=== PATIENT | male | born 1940 | race Caucasian/White ===

== ENCOUNTER 2018-02-25 11:09 | Observation (INO) | payer MEDICARE, OTHER ==
[~2018-02-25] VITALS: Ht 188 cm; Wt 101.9 kg
[~2018-02-25 11:09] MED LIST: Aspirin EC81 MG PO; LEVSOD125 PO
[2018-02-25 11:47] LABS: BASOPHILS ABSOLUTE AUTO 0.05 K/mm3 (0.00-0.23); BASOPHILS PERCENT AUTO 1 % (0-2); EOSINOPHILS PERCENT AUTO 3 % (0-6); Hematocrit 44.8 % (37.0-53.0); Hemoglobin 15.2 g/dL (13.5-17.5); IMMATURE GRAN ABSOLUTE AUTO 0.04 K/mm3 (0.00-0.10); IMMATURE GRAN PERCENT AUTO 1 % (0-1); LYMPHOCYTES ABSOLUTE AUTO 1.58 K/mm3 (0.84-5.20); LYMPHOCYTES PERCENT AUTO 27 % (21-46); MONOCYTES ABSOLUTE AUTO 0.74 K/mm3 (0.16-1.47); MONOCYTES PERCENT AUTO 13 % (4-13); Mean Corpuscular HGB 34.5 pg (26.0-34.0); Mean Corpuscular HGB Conc 33.9 g/dL (31.5-36.5); Mean Corpuscular Volume 102 fL (80-100); Mean Platelet Volume 10.9 fL (9.1-12.4); NEUTROPHILS ABSOLUTE AUTO 3.25 K/mm3 (1.96-9.15); NEUTROPHILS PERCENT AUTO 55 % (41-73); Platelet Count 134 K/mm3 (150-400); RDW Standard Deviation 48.8 fL (35.1-46.3); Red Blood Cell Count 4.41 M/mm3 (4.30-5.90); White Blood Cell Count 5.86 K/mm3 (4.00-11.30)
[2018-02-25 11:59] LABS: Prothrombin Time Results 10.3 Sec (9.7-11.5)
[2018-02-25 12:03] LABS: Alanine Aminotransfer (ALT/SGP 36 U/L (12-78); Albumin/Globulin Ratio 1.1 (0.8-1.8); Alk Phos 98 U/L (50-136); Anion Gap 7 mmol/L (6-16); Aspartate Aminotrans (AST/SGOT 28 U/L (12-37); Bilirubin, Total 0.7 mg/dL (0.1-1.0); Blood Urea Nitrogen 19 mg/dL (8-24); Bun/Creatinine Ratio 20.3 (12.0-20.0); CO2, Blood 26 mmol/L (21-32); Chloride, Blood 105 mmol/L (98-108); Creatinine, Blood 0.94 mg/dL (0.60-1.20); Globulin, Blood 3.6 g/dL (2.2-4.0); Glomerular Filtration Rate >60 (60-); Glucose, Blood 94 mg/dL (70-99); Potassium, Blood 4.5 mmol/L (3.5-5.5); Sodium, Blood 138 mmol/L (136-145); Total Protein, Blood 7.6 g/dL (6.4-8.2)
[2018-02-25 12:34] LABS: Source, Urine Clean Catch
[2018-02-25 12:41] LABS: Bilirubin, Urine Neg (Neg); Blood, Urine Neg (Neg); Glucose Qualitative, Urine Neg (Neg); Ketones, Urine Neg (Neg); Leukocyte Esterase, Urine Neg (Neg); Nitrite, Urine Neg (Neg); Protein, Urine Neg (Neg); Specific Gravity, Urine 1.015 (1.003-1.022); Urobilinogen, Urine NORM (Normal)
[2018-02-25 12:58] LABS: Appearance, Urine Clear (Clear); Color, Urine Yellow (P-Yellow)
[2018-02-25] MEDS ORDERED: Hair, Skin & N1 EACH PO (15:37)
[2018-02-25] MEDS ORDERED: VITAMIN D5000 UNI1 PO (15:40)
[2018-02-25] MEDS ORDERED: VIT B PO (15:41)
--- NOTE | 2018-02-25 16:37 | NUR ---
NEW ER ADMIT PT IS A/O X4, PLEASANT AFFECT. STATE REASON FOR HOSP L SIDED WEAKNESS, DIFFICULTY SPEAKING & THINKING TODAY WHILE @ [facility]. STATE SYMPTOMS HAVE RESOLVED @ THIS TIME. DR DEJESUS SAW HIM IN ER, DX TIA. ORDER ECHO & CAROTID US. CT HEAD NEGATIVE. PT HAS DISTANT HX OF AFIB, HAS BEEN TAKING LOW DOSE ASA @ HOME. DR DEJESUS START XARALTO & PRAVASTATIN. PT/ EDUCATED R/T UPCOMING PROCEDURES, TX'S & MEDICATIONS. QUESTIONS ANSWERED TO THEIR SATISFACTION @ THIS TIME. TELE SINUS KAYDEN 52, BP 172/98.
--- NOTE | 2018-02-26 04:36 | NUR ---
SHIFT SUMMARY PT HAS RESTED THIS SHIFT WITH NO ACUTE CHANGES. THERE WERE NO NEURO DEFICITS AND PT REPORTS COMPLETE RESOLUTION OF SYMPTOMS THAT BROUGHT HIM INTO THE HOSPITAL. PT HAS BEEN UP AND INDEPENDENT IN THE ROOM. DENIES PAIN OR NEEDS T/O THE NIGHT. VITALS STABLE. PLAN IS FOR ECHO TODAY AND POSSIBLE DISCHARGE HOME. WILL CONTINUE TO MONITOR AND REPORT TO ONCOMING RN.
[2018-02-26 05:35] LABS: Anion Gap 8 mmol/L (6-16); Blood Urea Nitrogen 19 mg/dL (8-24); Bun/Creatinine Ratio 19.4 (12.0-20.0); CO2, Blood 25 mmol/L (21-32); Calcium, Blood 8.9 mg/dL (8.5-10.1); Chloride, Blood 104 mmol/L (98-108); Creatinine, Blood 0.98 mg/dL (0.60-1.20); Glomerular Filtration Rate >60 (60-); Glucose, Blood 103 mg/dL (70-99); Potassium, Blood 4.2 mmol/L (3.5-5.5); Sodium, Blood 137 mmol/L (136-145)
--- NOTE | 2018-02-26 10:25 | NUR ---
Echocardiogram completed.
[2018-02-26] MEDS ORDERED: PRAV20 PO (14:19)
--- NOTE | 2018-02-26 14:46 | NUR ---
DISCHARGE NOTE PT LEFT WITH VIA CAR TO GO HOME. INDEPENDENT, VERY EAGER TO LEAVE. PIV REMOVED, PAPERWORK REVIEWED, MEDS FAXED TO [facility] IN [place]. WHILE TELE WAS ON, RYHTHM WAS NSR AT 58 PER TRENCHING MACHINE OPERATOR. ECHO DONE PRIOR TO LEAVING.
[2018-03-23] MEDS ORDERED: PROSTATE HEALT1 EACH PO (12:18)
[2018-03-23] MEDS ORDERED: VITAMIN B125000 MCG PO (12:19)
== END 2018-02-26 14:31 | disposition home or self-care (01) ==
LOC: ER 11:09 → MEDS 11:10 → ER 14:49 → MEDS 14:55 → ENPENDDIS 02-26 14:00 → MEDS 02-26 14:31
PROVIDERS: Emergency Medicine; ADMIT Hospitalist
DX: G45.9 Transient cerebral ischemic attack, unspecified (principal); E78.5 Hyperlipidemia, unspecified; E03.9 Hypothyroidism, unspecified; Z86.39 Personal history of other endocrine, nutritional and metabolic disease; Z79.82 Long term (current) use of aspirin; Z79.899 Other long term (current) drug therapy; Z87.891 Personal history of nicotine dependence
CPT/HCPCS: 36415; 70450; 71045; 80048; 80053; 81003; 84443; 85025; 85610; 85730; 93005; 93010; 93306; 93880; 99285-25; G0378

== ENCOUNTER 2018-03-26 05:56 | Day surgery (SDC) | payer MEDICARE, OTHER ==
[~2018-03-26] VITALS: Ht 188 cm; Wt 106.0 kg
[~2018-03-26 05:56] MED LIST changes: +Hair, Skin & N1 EACH PO; +PRAV20 PO; +PROSTATE HEALT1 EACH PO; +VIT B PO; +VITAMIN B125000 MCG PO; +VITAMIN D5000 UNI1 PO
--- NOTE | 2018-03-26 07:37 | NUR ---
DR NEVILLE IN ROOM TO CONSENT PT.
--- NOTE | 2018-03-26 07:55 | NUR ---
PT TOLERATED LEIGHA WELL; LEIGHA PROBE OUT.
--- NOTE | 2018-03-26 09:22 | NUR ---
DISCHARGE INSTRUCTIONS REVIEWED ALL QUESTIONS ANSWERED. 20 G IV DISCONTINUED FROM RIGHT FOREARM WITH INTACT CANNULA. PT DRANK SIPS OF WATER WITH NO ASPIRATION. PT ESCORTED OUT VIA WHEELCHAIR ESCORT.
== END 2018-03-26 22:38 | disposition home or self-care (01) ==
LOC: MHTC 05:56
PROC: B246ZZ4 Ultrasonography of Right and Left Heart, Transesophageal (ICD-10-PCS; principal; 2018-03-26)
DX: I67.9 Cerebrovascular disease, unspecified (principal); R53.83 Other fatigue; R06.02 Shortness of breath; I48.0 Paroxysmal atrial fibrillation; R42 Dizziness and giddiness; E83.119 Hemochromatosis, unspecified; I44.0 Atrioventricular block, first degree; E78.5 Hyperlipidemia, unspecified; E03.9 Hypothyroidism, unspecified; I10 Essential (primary) hypertension
CPT/HCPCS: 93312; 93325; J7120

== ENCOUNTER 2018-04-24 05:53 | Day surgery (SDC) | payer MEDICARE, OTHER ==
[~2018-04-24] VITALS: Ht 190.5 cm; Wt 104.0 kg
--- NOTE | 2018-04-24 08:08 | NUR ---
PT AWAKE, ALERT SITTING IN RECLINER. NO C/O PAIN OR DISCOMFORT. NO BLEEDING OR SWELLING NOTED TO RIGHT WRIST. AT BEDSIDE. VSS.
--- NOTE | 2018-04-24 08:52 | NUR ---
PT HR INCREASED TO MID 90'S WHILE SLEEPING. WOKE TO ASSESS SYMPTOMS AND HR BACK TO 70S.
--- NOTE | 2018-04-24 10:50 | NUR ---
DR. LUEVANO HERE TO DISCUSS RESULTS WITH PATIENT. 2 CC AIR REMOVED FROM TR BAND. ADDITIONAL 5 CC AIR REMOVED.
--- NOTE | 2018-04-24 11:09 | NUR ---
ADDITIONAL POLY REMOVED FROM TR BAND. NO BLEEDING AT SITE.
--- NOTE | 2018-04-24 11:58 | NUR ---
PT VERBALIZED UNDERSTANDING OF D/C INSTRUCTIONS. TR BAND REMOVED FROM RIGHT WRIST WITH RED CLOTH DOT DRESSING INTACT. ARM BOARD REMAINS ON. PT GETS DRESSED WITH ASSISTANCE FROM HIS . IV REMOVED FROM LAC WITH CATH INTACT, PRESSURE DRESSING APPLIED. VSS. PT DENIES NEED FOR W/C OUT TO PRIVATE VEHICLE. STEADY GAIT, NADN AT TIME OF DISPO.
== END 2018-04-24 12:00 | disposition home or self-care (01) ==
LOC: MHTC 05:53
DX: I49.9 Cardiac arrhythmia, unspecified (principal); R94.30 Abnormal result of cardiovascular function study, unspecified
CPT/HCPCS: 85347; 93458; 93571; 99152; C1769; C1887; C1894; J1644; J2250; J3010; J7030; Q9967

== ENCOUNTER → 2020-03-23 | Outpatient (CLI) | payer MEDICARE | LOC: LAB SHORT 12:51 → PLD 12:51 | DX: D48.5 Neoplasm of uncertain behavior of skin (principal) | CPT/HCPCS: 88305 ==

== ENCOUNTER → 2020-12-28 | Outpatient (CLI) | payer OTHER | END | disposition home or self-care (01) | LOC: LAB 07:35 → LAB SHORT 07:35 | DX: C44.41 Basal cell carcinoma of skin of scalp and neck (principal) | CPT/HCPCS: 88305 ==

== ENCOUNTER → 2022-11-28 | Outpatient (CLI) | payer OTHER | LOC: PLD 11:49 → LAB SHORT 11:49 | DX: C44.311 Basal cell carcinoma of skin of nose (principal) | CPT/HCPCS: 88305 ==

== ENCOUNTER 2023-09-15 09:35 | Emergency (ER) | payer OTHER ==
[~2023-09-15] VITALS: Ht 188 cm; Wt 100.7 kg
[2023-09-15] MEDS ORDERED: HYDROmorphone HCl/Pf 1MG SYR ONE (09:44)
[2023-09-15] MEDS ORDERED: Ondansetron HCl 2 MG / ML 2ML Vial IV ONE ×2 (09:50→12:30)
[2023-09-15] MEDS ORDERED: HYDROmorphone HCl/Pf 1MG SYR IV ONE ×2 (09:50→10:05)
[2023-09-15 10:00] LABS: BASOPHILS ABSOLUTE AUTO 0.03 K/mm3 (0.00-0.23); BASOPHILS PERCENT AUTO 1 % (0-2); EOSINOPHILS ABSOLUTE AUTO 0.08 K/mm3 (0.00-0.68); EOSINOPHILS PERCENT AUTO 1 % (0-6); Hematocrit 46.5 % (37.0-53.0); Hemoglobin 15.9 g/dL (13.5-17.5); IMMATURE GRAN ABSOLUTE AUTO 0.03 K/mm3 (0.00-0.10); IMMATURE GRAN PERCENT AUTO 1 % (0-1); LYMPHOCYTES ABSOLUTE AUTO 1.45 K/mm3 (0.84-5.20); LYMPHOCYTES PERCENT AUTO 24 % (21-46); MONOCYTES ABSOLUTE AUTO 0.67 K/mm3 (0.16-1.47); MONOCYTES PERCENT AUTO 11 % (4-13); Mean Corpuscular HGB 35.4 pg (26.0-34.0); Mean Corpuscular HGB Conc 34.2 g/dL (31.5-36.5); Mean Corpuscular Volume 104 fL (80-100); NEUTROPHILS ABSOLUTE AUTO 3.79 K/mm3 (1.96-9.15); NEUTROPHILS PERCENT AUTO 63 % (41-73); Platelet Count 169 K/mm3 (150-400); RDW Coefficient Variation 12.9 % (11.7-14.2); RDW Standard Deviation 49.2 fL (35.1-46.3); Red Blood Cell Count 4.49 M/mm3 (4.30-5.90); White Blood Cell Count 6.05 K/mm3 (4.00-11.30)
[2023-09-15 10:17] LABS: Bun/Creatinine Ratio 24.4 (12.0-20.0); Calcium, Blood 9.1 mg/dL (8.5-10.1); Creatinine, Blood 0.94 mg/dL (0.60-1.20); Potassium, Blood 4.5 mmol/L (3.5-5.5)
[2023-09-15] MEDS ORDERED: Morphine Sulfate 4 MG/1 ML Injection IV ONE (12:30)
[2023-09-15 12:41] VITALS: BP 180/119
== END 2023-09-15 12:57 | disposition short-term general hospital (02) ==
LOC: ER 09:35
PROVIDERS: Emergency Medicine
DX: S82.252A Displaced comminuted fracture of shaft of left tibia, initial encounter for closed fracture (principal); S82.832A Other fracture of upper and lower end of left fibula, initial encounter for closed fracture; W19.XXXA Unspecified fall, initial encounter; S01.01XA Laceration without foreign body of scalp, initial encounter; S01.81XA Laceration without foreign body of other part of head, initial encounter; Z87.891 Personal history of nicotine dependence; E03.9 Hypothyroidism, unspecified; E78.5 Hyperlipidemia, unspecified; Z79.82 Long term (current) use of aspirin; Z79.899 Other long term (current) drug therapy
CPT/HCPCS: 12002; 70450; 73552; 73562-LT; 73590; 80048; 85025; 96374-59; 96375-59; 96376-59; 99285-25; J1170; J2270; J2405

== ENCOUNTER 2024-10-08 09:25 | Emergency (ER) | payer OTHER ==
[~2024-10-08] VITALS: Ht 190.5 cm; Wt 98.4 kg
[2024-10-08 11:30] VITALS: BP 141/94
[2024-10-08] MEDS ORDERED: CEPH500 PO (11:55)
== END 2024-10-08 12:03 | disposition home or self-care (01) ==
LOC: ER 09:25
DX: S50.11XA Contusion of right forearm, initial encounter (principal); W19.XXXA Unspecified fall, initial encounter; L03.113 Cellulitis of right upper limb; E03.9 Hypothyroidism, unspecified; E78.5 Hyperlipidemia, unspecified; Z79.01 Long term (current) use of anticoagulants; Z79.890 Hormone replacement therapy; Z79.82 Long term (current) use of aspirin; Z79.899 Other long term (current) drug therapy; Z87.891 Personal history of nicotine dependence
CPT/HCPCS: 76882; 99283-25

== ENCOUNTER 2025-01-17 10:14 | Observation (INO) | payer OTHER ==
[2025-01-17] VITALS (22 sets, daily range): BP systolic 85–163; BP diastolic 55–114
[~2025-01-17] VITALS: Ht 190.5 cm; Wt 105.5 kg
[~2025-01-17 10:14] MED LIST changes: +CEPH500 PO
[2025-01-17] MEDS ORDERED: Ondansetron HCl 2 MG / ML 2ML Vial IV ONE (10:30)
[2025-01-17] MEDS ORDERED: Morphine Sulfate 4 MG/1 ML Injection IV PRN (10:30)
[2025-01-17] MEDS ORDERED: NS 1,000 ML IV ONE ×2 (10:43→12:43)
[2025-01-17] MEDS ORDERED: FentaNYL Citrate 50 MCG/ML 2 ML Injection ONE (10:45)
[2025-01-17] MEDS ORDERED: Midazolam HCl 1MG / ML 2ML Vial ONE (10:45)
[2025-01-17 10:47] LABS: Hematocrit 50.5 % (37.0-53.0); Hemoglobin 17.2 g/dL (13.5-17.5); Mean Corpuscular HGB Conc 34.1 g/dL (31.5-36.5); Mean Corpuscular Volume 103 fL (80-100); NRBC ABSOLUTE 0.00 K/mm3 (0.00-0.02); NRBC Auto 0.0 /100 WBC (0.0-0.2); Platelet Count 191 K/mm3 (150-400); RDW Coefficient Variation 13.2 % (11.7-14.2); RDW Standard Deviation 50.6 fL (35.1-46.3)
[2025-01-17 10:54] LABS: Prothrombin Time Results 12.2 Sec (9.7-11.5)
[2025-01-17 10:57] LABS: Alanine Aminotransfer (ALT/SGP 26 U/L (12-78); Albumin, Blood 4.1 g/dL (3.4-5.0); Albumin/Globulin Ratio 1.0 (0.8-1.8); Anion Gap 8 mmol/L (3-11); Aspartate Aminotrans (AST/SGOT 32 U/L (12-37); Bilirubin, Total 1.0 mg/dL (0.1-1.0); Blood Urea Nitrogen 18 mg/dL (8-24); CHOL/HDL RATIO 3.3; CO2, Blood 26 mmol/L (21-32); Calcium, Blood 9.5 mg/dL (8.5-10.1); Chloride, Blood 103 mmol/L (98-108); Cholesterol 238 mg/dL (50-200); Creatinine, Blood 1.01 mg/dL (0.60-1.20); Globulin, Blood 4.0 g/dL (2.2-4.0); Glucose, Blood 121 mg/dL (70-99); HDL Cholesterol 72 mg/dL (>39); LDL/HDL RATIO 1.6; Low Density Lipoprotein Chol 119 mg/dL (0-110); Magnesium, Blood 2.2 mg/dL (1.6-2.4); Potassium, Blood 4.0 mmol/L (3.5-5.5); Sodium, Blood 133 mmol/L (136-145); Total Protein, Blood 8.1 g/dL (6.4-8.2); Triglycerides 236 mg/dL (30-160); Very Low Density Lipoprot Chol 47 mg/dL (6-32)
[2025-01-17 10:57] LABS: Calcium, Ionized (POC) 1.16 mmol/L (1.10-1.46); Chloride (POC) 102 mmol/L (98-108); Creatinine (POC) 1.2 mg/dL (0.8-1.3); Glucose (ISTAT POC) 119 mg/dL (70-99); Hematocrit (POC) 49.0 % (41.0-53.0); Hemoglobin (POC) 16.7 g/dL (13.5-17.5); Potassium (POC) 4.2 mmol/L (3.5-5.5); Sodium (POC) 137 mmol/L (135-148); Total CO2 (POC) 28 mmol/L (21-32)
[2025-01-17] MEDS ORDERED: NS 250 ML IV ONE (12:43)
[2025-01-17] MEDS ORDERED: Heparin Sodium 1000 Units/ML 10ML MDV ONE (12:43)
[2025-01-17] MEDS ORDERED: Verapamil HCL 2.5 MG/ML 2ML Injection ONE (12:43)
[2025-01-17] MEDS ORDERED: Nitroglycerin 2 MG/20 ML BTL ONE (12:44)
[2025-01-17] MEDS ORDERED: Ondansetron HCl 2 MG / ML 2ML Vial IV PRN (13:05)
[2025-01-17] MEDS ORDERED: FLU VACC TS2025(65UP)/MF59C/PF 45 MCG/0.5 ML SYRINGE IM SCH (13:10)
[2025-01-17] MEDS ORDERED: MAGNESIUM OXID500 MG PO (13:17)
[2025-01-17] MEDS ORDERED: XARELTO20 MG PO (13:17)
[2025-01-17] MEDS ORDERED: ZINC15 PO (13:18)
[2025-01-17] MEDS ORDERED: FISH OIL 1,0001 EA10 PO (13:18)
--- NOTE | 2025-01-17 13:49 | NUR ---
Admission/[place] of Care: Patient arrived from to [facility] at approx 1215hr, accompanied by x2 cath RN's. Patient alert and oriented x4. Denies chest pain or discomfort. VSS, SpO2 98% RA. Peripheral IV's x2 patent and intact. TR band in place to rt radial. Small hematoma noted proximal of TR band upon arrival to unit. Direct pressure held over hematoma, effectively displaced. Distal cap refill and Spo2 pleth WNL. Hematoma then returned after direct pressure stopped. Dr. C[place]AND to bedside, assisted with placement of additional TR band over insertions site 10ml air placed. Instructed to decrease air in both bands simultaneously 2hr post placement. Site and distal extremity now without any complications. Call light in reach, makes needs known. Will continue to monitor.
[2025-01-17] MEDS ORDERED: Heparin Sodium,Porcine 5,000 UNIT/0.5 ML SDV SC ONE (17:13)
--- NOTE | 2025-01-17 18:32 | NUR ---
Shift Summary: No significant changes throughout remainder of shift. Continues to deny chest pain/discomfort. VS remain stable, HR has improved from 40's to low 60's, BP stable. Voided using urinal in bed without difficulty. Rt radial access site remains stable. X2 TR bands slowly deflated and removed throughout remainder of shift. Small soft hematoma noted, but stable. Distal extremity wnl. Call light in reach, makes needs known. Will continue to monitor until report to NOC shift RN.
[2025-01-18] VITALS (9 sets, daily range): BP systolic 107–143; BP diastolic 81–114
[2025-01-18 02:35] LABS: BASOPHILS ABSOLUTE AUTO 0.06 K/mm3 (0.00-0.23); BASOPHILS PERCENT AUTO 1 % (0-2); EOSINOPHILS ABSOLUTE AUTO 0.15 K/mm3 (0.00-0.68); EOSINOPHILS PERCENT AUTO 2 % (0-6); Hematocrit 42.3 % (37.0-53.0); Hemoglobin 14.0 g/dL (13.5-17.5); IMMATURE GRAN ABSOLUTE AUTO 0.02 K/mm3 (0.00-0.10); IMMATURE GRAN PERCENT AUTO 0 % (0-1); LYMPHOCYTES ABSOLUTE AUTO 1.41 K/mm3 (0.84-5.20); LYMPHOCYTES PERCENT AUTO 19 % (21-46); MONOCYTES ABSOLUTE AUTO 1.00 K/mm3 (0.16-1.47); MONOCYTES PERCENT AUTO 14 % (4-13); Mean Corpuscular HGB Conc 33.1 g/dL (31.5-36.5); Mean Corpuscular Volume 104 fL (80-100); NEUTROPHILS ABSOLUTE AUTO 4.72 K/mm3 (1.96-9.15); NEUTROPHILS PERCENT AUTO 64 % (41-73); NRBC ABSOLUTE 0.00 K/mm3 (0.00-0.02); NRBC Auto 0.0 /100 WBC (0.0-0.2); Platelet Count 144 K/mm3 (150-400); RDW Coefficient Variation 13.0 % (11.7-14.2); RDW Standard Deviation 50.1 fL (35.1-46.3)
[2025-01-18 02:40] LABS: Alanine Aminotransfer (ALT/SGP 25.0 U/L (12-78); Albumin, Blood 3.1 g/dL (3.4-5.0); Albumin/Globulin Ratio 1.0 (0.8-1.8); Anion Gap 7.0 mmol/L (3-11); Aspartate Aminotrans (AST/SGOT 67.0 U/L (12-37); Bilirubin, Total 0.7 mg/dL (0.1-1.0); Blood Urea Nitrogen 18.0 mg/dL (8-24); CO2, Blood 26.0 mmol/L (21-32); Calcium, Blood 8.8 mg/dL (8.5-10.1); Chloride, Blood 106.0 mmol/L (98-108); Creatinine, Blood 0.93 mg/dL (0.60-1.20); Globulin, Blood 3.2 g/dL (2.2-4.0); Glucose, Blood 97.0 mg/dL (70-99); Potassium, Blood 4.4 mmol/L (3.5-5.5); Sodium, Blood 135.0 mmol/L (136-145); Total Protein, Blood 6.3 g/dL (6.4-8.2)
--- NOTE | 2025-01-18 04:50 | NUR ---
SHIFT SUMMARY uneventful shift. pt remained in Afib, controlled rates 60-80s. VSS. R radial site soft, with mild bruising. no chest pain
[2025-01-18] MEDS ORDERED: Cholecalciferol 1000 Unit Tablet (=25MCG) PO SCH (09:00)
[2025-01-18] MEDS ORDERED: XARELTO20 MG PO (11:21)
[2025-01-18] MEDS ORDERED: CLOP75 PO (11:22)
[2025-01-18] MEDS ORDERED: ATOR10 PO (11:22)
[2025-01-18] MEDS ORDERED: ASPI81CH PO (11:22)
--- NOTE | 2025-01-18 11:45 | NUR ---
Discharge orders received. patient education packets for heart attack, atorvastatin and clopidogrel printed and reviewed with patient. Doctor instructions reviewed with patient and his , including bean picker location for new medications. Patient and given opportunity to ask questions. Patient left unit under own power with .
== END 2025-01-18 12:12 | disposition home or self-care (01) ==
LOC: ER 10:14 → ICUE 11:28
PROVIDERS: Emergency Medicine; ADMIT Internal Medicine
DX: I21.19 ST elevation (STEMI) myocardial infarction involving other coronary artery of inferior wall (principal); I48.91 Unspecified atrial fibrillation; E78.5 Hyperlipidemia, unspecified; I25.10 Atherosclerotic heart disease of native coronary artery without angina pectoris; I50.30 Unspecified diastolic (congestive) heart failure; I11.0 Hypertensive heart disease with heart failure; Z79.899 Other long term (current) drug therapy
CPT/HCPCS: 36415; 71045; 76937; 80047; 80053; 80061; 83735; 84484; 85014; 85025; 85027; 85347; 85610; 85730; 86850; 86900; 86901; 92978; 92979; 93005; 93010; 93306; 93458; 94760; 96374-59; 96375-59; 99152; 99153; 99285-25; A9270; C1725; C1753; C1769; C1874; C1887; C1894; C9600; C9606; J0461; J1644; J2250; J2270; J2405; J3010; J7030; J7050; Q9967